=== PATIENT | male | born 1955 | race Caucasian/White ===

== ENCOUNTER 2018-04-22 07:10 | Observation (INO) | payer BC, OTHER ==
--- NOTE | 2018-04-09 13:52 | HP ---
HISTORY AND PHYSICAL: DATE OF SURGERY: 04/22/18 DATE OF OFFICE VISIT: 04/09/18 SURGEON: Jovanna Prince MD.* (DICTATED BY ANNETTA HANSON) PROCEDURE: Left total knee arthroscopy. CHIEF COMPLAINT: Left knee pain. HISTORY OF PRESENT ILLNESS: Mr. Jones is a 63-year-old gentleman with continued complaints of left knee pain secondary to endstage osteoarthritis. He has failed conservative management and elected to proceed with a left total knee arthroplasty, which is scheduled for 04/22/[address] Prince. PAST MEDICAL HISTORY: Hypertension and hypothyroidism. PAST SURGICAL HISTORY: Left knee arthroscopy, hernia repair and sinus surgery. CURRENT MEDICATIONS: 1. Lisinopril 10 mg daily. 2. Montelukast sodium 10 mg daily. 3. Synthroid 50 mcg daily. 4. Fish oil. 5. Saw palmetto. 6. Vitamin D. ALLERGIES: No known drug allergies. FAMILY HISTORY: Ovarian and prostate cancer. SOCIAL HISTORY: He is a 63-year-old gentleman lives with his . He smokes 1 to 2 cigarettes a day. He denies use of drugs, uses occasional alcohol. REVIEW OF SYSTEMS: A complete 14 point review of systems is reviewed with the patient, is positive for hypothyroidism. He denies history of DVT, PE, hepatitis, HIV or anesthesia problems. PHYSICAL EXAMINATION GENERAL: He is well developed, well nourished, in no acute distress. VITAL SIGNS: He stands 70 inches tall, weighs 311 pounds, his blood pressure is 122/70, his heart rate is 72. HEENT: Normocephalic, atraumatic. NECK: Supple. No palpable lymph nodes. PULMONARY: Lungs are clear to auscultation bilaterally. CARDIO: Regular rate and rhythm. Strong S1 and S2. ABDOMEN: Soft, nontender, nondistended. NEUROLOGICAL: He is alert and oriented x3. MUSCULOSKELETAL: Left lower extremity: Skin is intact. There are no open wounds or abrasions. There is a moderate joint effusion. Range of motion is 10 to 120 degrees of flexion with patellofemoral crepitus 5/5 lower extremity strength. 2+ dorsalis pedis pulses. Intact sensation. ASSESSMENT AND PLAN: Mr. Spann is a 63-year-old gentleman with end-stage osteoarthritis of the left knee. He has failed conservative treatment, elected to proceed with a left total knee arthroplasty, which is scheduled for 04/22/[address] Prince discussed the risks and the benefits of the surgery on today's visit, all of his questions were answered. He will follow up with Dr. Prince 2 weeks after the surgery. ANNETTA HANSON [id number]/[facility] #: [id number] SHAUNA
[~2018-04-22 07:10] MED LIST: Buffered Lidocaine 0.9% SYRIN* 5 ML/SYR SYRINGE INTRADERM ONE; ceFAZolin 1 GM VIAL(*) 3 GM in NS 0.9% 100 ML* 130 ML IVPB ONE
[2018-04-22] MEDS ORDERED: ceFAZolin 2 GM PREMIX (*) 2 GM/50 ML BAG IVPB ONE (07:22)
[2018-04-22] MEDS ORDERED: ceFAZolin 1 GM in Dextrose (*) 1 GM/50 ML BAG IVPB ONE (07:22)
[2018-04-22] MEDS ORDERED: Buffered Lidocaine 0.9% SYRIN* 5 ML/SYR SYRINGE ONE (07:22)
[2018-04-22] MEDS ORDERED: Propofol* 10 MG/ML 20 ML BTL IV PUSH ONE (07:39)
[2018-04-22] MEDS ORDERED: Lidocaine 2% PF * 5 ML VIAL ONE (07:39)
[2018-04-22] MEDS ORDERED: Succinylcholine* 20 MG/ML 10 ML VIAL ONE (07:39)
[2018-04-22] MEDS ORDERED: Rocuronium* 10 MG/ML VIAL ONE ×2 (07:39→10:26)
[2018-04-22] MEDS ORDERED: fentaNYL* 50 MCG/ML 2 ML VIAL (100 MCG VIAL) ONE (07:39)
[2018-04-22] MEDS ORDERED: Midazolam* 1 MG/ML 2 ML VIAL (2 MG) ONE (07:40)
[2018-04-22] MEDS ORDERED: EPINEPHrine SYR 0.1 MG/ML* (1:10,000) SYRINGE ONE (07:42)
[2018-04-22] MEDS ORDERED: Phenylephrine INJ* 10 MG/ML 1 ML VIAL (10 MG) ONE (07:42)
[2018-04-22] MEDS ORDERED: Sterile Water for Inj* 30 ML ONE (07:43)
[2018-04-22] MEDS ORDERED: Bupivacaine 0.5% W/EPI SDV* 10 ML VIAL INJ ONE (07:53)
[2018-04-22] MEDS ORDERED: ROPIVACAINE 5 MG/ML 30 ML BTL (0.5%) ONE (08:36)
[2018-04-22] MEDS ORDERED: EPHEDrine (Pressors)* 50 MG/ML VIAL ONE (08:37)
[2018-04-22] MEDS ORDERED: Lidocaine 2% PF* 10 ML AMP ONE (08:57)
[2018-04-22] MEDS ORDERED: Tranexamic Acid 1,000 MG/10 ML SDV IV ONE (09:21)
[2018-04-22] MEDS ORDERED: Dexamethasone IV* 4 MG/ML 1 ML (4 MG) ONE (10:06)
[2018-04-22] MEDS ORDERED: Bupivacaine 0.5% PF 10 ML VIAL INJ ONE (10:08)
[2018-04-22] MEDS ORDERED: HYDROmorphone INJ* 0.5 MG/0.5 ML SYRINGE ONE ×4 (10:42→13:43)
[2018-04-22] MEDS ORDERED: Labetalol IV* 5 MG/ML 20 ML VIAL ONE (10:52)
[2018-04-22] MEDS ORDERED: Ketorolac INJ* 30 MG/ML 1 ML VIAL ONE (10:53)
[2018-04-22] MEDS ORDERED: Ondansetron INJ* 2 MG/ML VIAL ONE (10:55)
[2018-04-22] MEDS ORDERED: Naloxone* 0.4 MG/ML 1 ML VIAL IV PRN (11:01)
[2018-04-22] MEDS ORDERED: Acetaminophen TAB* 325 MG PO PRN (11:01)
[2018-04-22] MEDS ORDERED: Glycopyrrolate IV* 0.2 MG/ML 1 ML VIAL ONE ×2 (11:51→15:40)
[2018-04-22] MEDS ORDERED: Neostigmine Methylsulfate* 1 MG/ML 10 ML VIAL (1 mg/ml) ONE ×2 (11:51→15:40)
[2018-04-22] MEDS: HYDROmorphone INJ* 0.5 MG/0.5 ML SYRINGE IV PRN ×4 (12:53→13:48)
[2018-04-22] MEDS ORDERED: Cyclobenzaprine TAB* 10 MG PO PRN (12:55)
[2018-04-22] MEDS ORDERED: Magnesium Hydroxide LIQ* 30 ML UDC PO PRN (12:55)
[2018-04-22] MEDS ORDERED: Ondansetron ODT TAB* 4 MG PO PRN (12:55)
[2018-04-22] MEDS ORDERED: traZODone TAB* 50 MG TAB PO PRN (12:55)
[2018-04-22] MEDS ORDERED: Morphine VIAL* 4 MG/ML VIAL (1 ml vial) IV PRN (12:55)
[2018-04-22] MEDS ORDERED: oxyCODONE/Acetamin 5/325 MG* TAB PO PRN (12:55)
[2018-04-22] MEDS ORDERED: diPHENhydraMINE IV* 50 MG/ML 1 ml VIAL (BENADRYL) IV PRN (12:55)
[2018-04-22] MEDS ORDERED: oxyCODONE/Acetamin 5/325 MG* TAB ONE (13:21)
[2018-04-22] MEDS: oxyCODONE/Acetamin 5/325 MG* TAB PO PRN (13:21)
--- NOTE | 2018-04-22 13:32 | RAD ---
HISTORY: POST OP COMPARISONS: February 19, 2018 VIEWS: 2, Frontal and lateral views of the left knee FINDINGS: BONE DENSITY: Normal. BONES: The patient is status post right knee arthroplasty. There is no hardware failure or osteolysis. JOINTS: The patient is status post right knee arthroplasty ALIGNMENT: There is no dislocation. SOFT TISSUES: There is postsurgical change to the soft tissues. OTHER FINDINGS: None. IMPRESSION: THE PATIENT IS STATUS POST RIGHT KNEE ARTHROPLASTY
[2018-04-22] MEDS ORDERED: Warfarin TAB(*) 6 MG PO ONE (17:00)
[2018-04-22] MEDS: ceFAZolin 1 GM in Dextrose (*) 1 GM/50 ML BAG IVPB SCH (17:46)
[2018-04-22] MEDS: oxyCODONE TAB* 5 MG TAB PO PRN ×2 (17:50→22:00)
[2018-04-22] MEDS: Ferrous Sulfate TAB* 325 MG PO SCH (22:00)
[2018-04-22] MEDS: Docusate CAP* 100 MG PO SCH (22:00)
[2018-04-22] MEDS: Magnesium Hydroxide LIQ* 30 ML UDC PO SCH (22:00)
[2018-04-22] MEDS: SAW PALMETTO FRUIT PO SCH (22:02)
[2018-04-23] MEDS: oxyCODONE TAB* 5 MG TAB PO PRN ×3 (02:26→12:55)
[2018-04-23] MEDS: ceFAZolin 1 GM in Dextrose (*) 1 GM/50 ML BAG IVPB SCH ×2 (02:28→09:25)
[2018-04-23] MEDS ORDERED: Levothyroxine TAB* 50 MCG TAB PO SCH (06:00)
[2018-04-23 06:37] LABS: Hematocrit 37 % (42-52); Hemoglobin 12.6 g/dl (14.0-18.0); Mean Platelet Volume 8.3 um3 (7.4-10.4); Platelet Count 202 10^3/ul (150-450)
[2018-04-23] MEDS ORDERED: Lisinopril TAB* 10 MG PO SCH (09:00)
[2018-04-23] MEDS ORDERED: Enoxaparin(*) 40 MG/0.4 ML SYR SUBCUT SCH (09:00)
[2018-04-23] MEDS ORDERED: Vitamin THERAPEUTIC TAB PO SCH (09:00)
[2018-04-23] MEDS ORDERED: Montelukast Sodium TAB* 10 MG PO SCH (09:00)
[2018-04-23] MEDS: Magnesium Hydroxide LIQ* 30 ML UDC PO SCH (09:20)
[2018-04-23] MEDS: oxyCODONE/Acetamin 5/325 MG* TAB PO PRN ×2 (09:21→14:28)
[2018-04-23] MEDS: Ferrous Sulfate TAB* 325 MG PO SCH (09:21)
[2018-04-23] MEDS: Docusate CAP* 100 MG PO SCH (09:21)
[2018-04-23] MEDS: SAW PALMETTO FRUIT PO SCH (09:25)
--- NOTE | 2018-04-23 11:29 | PN ---
Progress Note - Progress Note Date of Service: 04/23/18 SOAP: Subjective: []Patient seen at bedside. He is feeling well with no chest pain, nausea, dizziness or shortness of breath. Left knee pain is well controlled. Objective: []\ Vital Signs Temp 98.7 F 04/23/18 07:26 Pulse 62 04/23/18 07:26 Resp 18 04/23/18 09:21 BP 141/92 04/23/18 07:26 Pulse Ox 97 04/23/18 07:26 Intake & Output 04/22/18 04/23/18 04/23/18 18:59 06:59 18:59 Intake Total 2430 2118 1170 Output Total 675 2550 300 Balance 1755 -432 870 Weight 310 lb Intake: IV Fluids 1900 908 LR 1900 908 IVPB 50 110 ABX - CEFAZOLIN 55 Oral 480 1100 1170 Output: Urine 300 Strickland 625 2550 Residual 50 Strickland 16 Fr 50 Laboratory Last Values Hgb 12.6 g/dl (14.0-18.0) L 04/23/18 06:10 Hct 37 % (42-52) L 04/23/18 06:10 Plt Count 202 10^3/ul (150-450) 04/23/18 06:10 MPV 8.3 um3 (7.4-10.4) 04/23/18 06:10 Sodium 138 mmol/L (135-145) 04/23/18 06:10 Potassium 4.1 mmol/L (3.5-5.0) 04/23/18 06:10 Chloride 106 mmol/L (101-111) 04/23/18 06:10 Carbon Dioxide 27 mmol/L (22-32) 04/23/18 06:10 Anion Gap 5 mmol/L (2-11) 04/23/18 06:10 BUN 10 mg/dL (6-24) 04/23/18 06:10 Creatinine 0.80 mg/dL (0.67-1.17) 04/23/18 06:10 Est GFR ( Amer) 118.5 (>60) 04/23/18 06:10 Est GFR (Non-Af Amer) 98.0 (>60) 04/23/18 06:10 BUN/Creatinine Ratio 12.5 (8-20) 04/23/18 06:10 Glucose 135 mg/dL (70-100) H 04/23/18 06:10 Calcium 8.3 mg/dL (8.6-10.3) L 04/23/18 06:10 General: Well appearing, NAD LLE: Left knee dressing CDI and cryo unit in use. DF/PF intact. DP 2+. Sensation intact distally. Thigh soft. BL calves supple and nontender without erythema, edema or palpable cords. Assessment: []POD 1 sp left total knee arthroplasty Plan: []WBAT PT/OT INR ordered, will dose coumadin with results Lovenox bridge to coumadin
--- NOTE | 2018-04-23 11:36 | OP ---
DATE OF OPERATION: 04/22/18 - ROOM #348 DATE OF : 57 SURGEON: Jovanna Prince MD SUPERVISING AIRPLANE PILOT: ANNETTA Calderon. Ms. Sena did help throughout the procedure with preparation of the leg, wound retraction, manipulation of the knee, and wound closure. ANESTHESIOLOGIST: Dr. Murdock. ANESTHESIA: General. PRE-OP DIAGNOSIS: Severe end-stage degenerative osteoarthritis of the left knee joint. POST-OP DIAGNOSIS: Severe end-stage degenerative osteoarthritis of the left knee joint. OPERATIVE PROCEDURE: Left total knee arthroplasty. INDICATIONS: Mr. Spann is a 63-year-old gentleman with years of increasingly severe left knee pain. He failed conservative treatment with antiinflammatory pain medication, intraarticular injections, brace wear, and physical therapy. Radiographs showed [id number] arthritis. Due to continued pain and decreased quality of life, the patient elected to undergo left total knee arthroplasty. Informed consent was obtained from the patient. He understood the risks of surgery included, but were not limited to, bleeding, infection, damage to nearby structures, continued pain, need for further surgery , intraoperative fracture, nerve palsy, hardware failure or loosening, knee stiffness, loss of motion, stroke, heart attack, blood clot, and . He wished to proceed. COMPLICATIONS: None. TOURNIQUET TIME: 60 minutes. SPECIMENS: Bone and cartilage from the left knee joint sent to Pathology. HARDWARE USED: This is Alfaro and Nephew cemented total knee arthroplasty hardware. Two packages of simplex bone cement were used. For the femur, a left size 8 posterior stabilized Legion Oxinium femoral component. For the tibia, a size 7 left Minoo II tibial baseplate. For the insert, a 9-mm posterior stabilized articular insert size 7/8, and for the patella, a 35-mm 3 peg all poly patella. INTRAOPERATIVE FINDINGS: Intraoperatively, the patient was noted to have severe end-stage arthritis in all three compartments with full-thickness loss of cartilage. Preoperatively, he had a 20-degree flexion contracture. This corrected to full extension intraoperatively. DESCRIPTION OF PROCEDURE: Mr. Spann was identified in the preanesthesia unit. His left lower extremity was marked as the correct preoperative side. Informed consent was signed and placed in the chart. The patient was taken to the operating room and placed under general anesthesia. A Strickland catheter was placed. A tourniquet was placed on the left high. Left lower extremity was prepped and draped in the usual sterile fashion. Preop time-out was made to correctly identify the patient, side, and site. Appropriate perioperative antibiotics were given within 1 hour of incision. Tourniquet was inflated and a midline incision was made with a 10 blade. New 10 blade was used to make a standard medial parapatellar arthrotomy. Pelvis subluxed laterally. Electrocautery was used to subperiosteally elevate soft tissue off the superomedial tibia to the mid sagittal plane. Rongeur was used to remove any osteophytes. The knee was flexed up. The anterior horn of the lateral meniscus and the ACL were sharply released. A drill was used to enter the distal femur. Intramedullary distal femoral cutting guide was pinned on the distal femur. Oscillating saw was used to make the distal cut. Next, an external rotation guide was pinned on the distal femur. The distal femur was sized to a size 8. Size 8 multi-cutting jig was pinned on the distal femur. Oscillating saw was used to make the appropriate 4 chamfer cuts. The PCL was completely released. Tibia was subluxed anteriorly. Extramedullary tibial cutting guide was pinned on the proximal tibia. Oscillating saw was used to make the proximal tibial cut perpendicular to the mechanical axis of the tibia. The bone was carefully removed. The knee was brought out into full extension. Spacer block had excellent fit. The medial and lateral ligaments were well balanced. Flexion and extension gap was well balanced. The knee was flexed up. Lamina womens volleyball coach was placed both medially and laterally. Any remaining meniscus was carefully removed using electrocautery. Curved osteotome was used to remove any posterior osteophytes. Tibial tray and drop michael were placed and once again confirmed a satisfactory tibial cut. A left size 8 femoral trial was impacted onto the distal femur and had excellent fit. The box for the posterior stabilized implant was prepared using the reamer and box-cut osteotome. Size 7 tibial tray trial with a 9-mm insert trial was placed. The knee was taken through a range of motion. The knee had full extension to 130 degrees of flexion with satisfactory patellofemoral tracking. The patella was everted. 9 mm of patellar bone and cartilage were carefully removed using an oscillating saw. The patella was sized to size 35. Three peg holes were drilled through the size 35 guide. Trial 35 patella was placed and the knee was taken through a range of motion. There was satisfactory patellofemoral tracking. All trials were carefully removed. The tibia was subluxed anteriorly and sized to a size 7. Proximal tibia was prepared using a size 7 keel punch. All bony cut surfaces were copiously irrigated with sterile saline and dried. Final implants were cemented into place, starting with the tibia followed by the femur, and lastly the patella. A 9-mm insert trial was placed and the knee was brought out to full extension. The tourniquet was turned down at 60 minutes. The knee was copiously irrigated with sterile saline. Electrocautery was used to obtain meticulous hemostasis. Once the cement had fully cured, the insert trial was removed. Any excess cement was carefully removed around the implants and capsule. Final insert chosen was a 9- mm posterior stabilized articular insert, size 7/8. This was locked into position on the tibial tray without difficulty. Stability of the insert was checked and rechecked and noted to be stable. The knee was once again copiously irrigated with sterile saline. The extensor mechanism was closed using interrupted #1 Vicryls. The rest of the incision was closed in a layered fashion using 0 and 2-0 Vicryls. The skin was closed using running 3-0 nylon suture. Sterile Xeroform, 4x4s, and Webril were used to cover the incision. Reginald wrap and cold pack were placed over this. The patient's anesthesia was reversed without difficulty. He was taken to the PACU in stable condition. Intended weight-bearing will be weightbearing as tolerated. Intended DVT prophylaxis will be Coumadin with a Lovenox bridge. [id number]/[facility] #: [id number] [facility]IT[facility]as
[2018-04-23 12:48] LABS: INR 0.99 (0.77-1.02)
[2018-04-23 15:34] VITALS: BP 153/86
[2018-04-23] MEDS ORDERED: Warfarin TAB(*) 10 MG PO ONE (17:00)
[2018-04-23] MEDS ORDERED: Warfarin TAB(*) 4 MG PO ONE (17:00)
--- NOTE | 2018-04-24 09:16 | DS ---
AMENDED REPORT NOW INCLUDES DATE OF DISCHARGE AND COSIGNER DESIGNATION E-SIGNED BEFORE ADJUSTMENTS DISCHARGE SUMMARY: DATE OF ADMISSION: 04/22/18. DATE OF DISCHARGE: 04/23/18 SURGEON: Dr. Jovanna Prince.* (DICTATED BY ANNETTA PATEL) AIR SUPPORT OPERATIONS OPERATOR: ANNETTA Calderon. PRE-OP DIAGNOSIS: Severe end-stage degenerative osteoarthritis of the left knee joint. OPERATIVE PROCEDURE: Left total knee arthroplasty. INDICATIONS: Mr. Spann is a 63-year-old gentleman with years of increasingly severe left knee pain. He failed conservative management and elected to undergo a left total knee arthroplasty. HOSPITAL COURSE: The patient was admitted to [facility] on . He underwent a left total knee arthroplasty without complications. He recovered briefly in the PACU and then was transferred to the short-stay surgical unit. On postop day #1, he was well-appearing, in no acute distress. His incision was clean, dry, and intact with well-approximated wound edges and no surrounding erythema. Calves were soft and supple without erythema, edema or palpable cords. Left lower extremity dorsiflexion and plantar flexion intact. Dorsalis pedis pulse 2+. Capillary refill less than 2 seconds distally. LABORATORY STUDIES: Hemoglobin 12.6, hematocrit 37, INR 0.99. PHYSICAL EXAMINATION: Vital Signs: Temperature 98.1 orally, pulse 56, respiratory rate 17, oxygen saturation 99, and blood pressure 144/85. DISPOSITION: The patient was deemed to be medically and orthopedically stable for discharge home. DISCHARGE MEDICATIONS: Medications to resume at home include: 1. Singulair 10 mg p.o. q.a.m. 2. Lisinopril 10 mg p.o. q.a.m. 3. Saw palmetto 1 tab p.o. b.i.d. 4. Vitamin D3 5000 mg p.o. q.a.m. 5. Levothyroxine 150 mcg p.o. q.a.m. 6. Vitamin E one tab daily New medications: 1. Docusate 100 mg p.o. b.i.d. 2. Percocet 5/325 one to two tabs every 4 to 6 hours p.r.n., max daily dose of 10. 3. Warfarin 2 mg tabs one, 2-3 times daily depending on INR. DISCHARGE PLAN: Weightbearing as tolerated. Continue physical therapy. Coumadin, last INR 0.99 on 04/23/18, dosing 04/23/18 of 10 mg. Recheck INR on 04/24/18. Pain control with Percocet 5/325 one to two tabs every 4 to 6 hours for pain, max of 10 tabs per day. Follow up with Dr. Prince in 10 to 14 days. ANNETTA PATEL [id number]/[facility] #: [id number] [facility]
== END 2018-04-23 18:15 | disposition home or self-care (01) ==
LOC: OR 07:10 → SSU 14:50
PROVIDERS: ADMIT Orthopaedic Surgery Adult Reconstructive Orthopaedic Surgery; ATTEND Orthopaedic Surgery Adult Reconstructive Orthopaedic Surgery
PROC: 0SRD0J9 Replacement of Left Knee Joint with Synthetic Substitute, Cemented, Open Approach (ICD-10-PCS; principal; 2018-04-22 09:00)
DX: M17.12 Unilateral primary osteoarthritis, left knee (principal); I10 Essential (primary) hypertension; E03.9 Hypothyroidism, unspecified; Z79.899 Other long term (current) drug therapy; Z79.01 Long term (current) use of anticoagulants; F17.210 Nicotine dependence, cigarettes, uncomplicated
CPT/HCPCS: 36415; 80048; 85014; 85018; 85049; 85610; A9270-GY; C1776; G0378; J0171; J0330; J0690; J1100; J1170; J1650; J1885; J2001; J2250; J2405; J2704; J2710; J2795; J3010

== ENCOUNTER 2019-01-22 08:53 | Inpatient (IN) | payer BC ==
--- NOTE | 2019-01-13 11:11 | HP ---
HISTORY AND PHYSICAL: DATE OF ADMISSION/SURGERY: 01/22/19 DATE OF OFFICE VISIT: 01/12/19 SURGEON: Jovanna Prince MD* (dictated by ANNETTA Hanson). PROCEDURE: Right total knee arthroplasty. CHIEF COMPLAINT: Right knee pain. HISTORY OF PRESENT ILLNESS: Mr. Spann is a 63-year-old gentleman with end- stage osteoarthritis of the right knee. He has failed conservative treatment and elected to proceed with a right total knee arthroplasty. PAST MEDICAL HISTORY: Hypertension, hypothyroidism. PAST SURGICAL HISTORY: Left total knee arthroplasty, hernia repair, and sinus surgery. CURRENT MEDICATIONS: 1. Tylenol with Codeine as needed. 2. Carisoprodol 350 mg q.h.s. as needed. 3. Lisinopril 20 mg a day. 4. Montelukast sodium 10 mg a day. 5. Synthroid 50 mcg a day. 6. Saw palmetto. 7. Fish oil. 8. Vitamin D. ALLERGIES: No known drug allergies. FAMILY HISTORY: Cancer. SOCIAL HISTORY: This 63-year-old gentleman lives with his . He does not smoke or use drugs. He uses occasional alcohol. REVIEW OF SYSTEMS: A complete 14-point review of systems was reviewed with the patient, it was positive for hypothyroidism. He denies a history of DVT, PE, hepatitis, HIV, or anesthesia problems. PHYSICAL EXAMINATION GENERAL: He is well developed, well nourished, in no acute distress. VITAL SIGNS: He stands 72 inches tall, weighs 293 pounds. His blood pressure is 140/86, his heart rate is 56. HEENT: Normocephalic, atraumatic. NECK: Supple. No palpable lymph nodes. PULMONARY: Lungs are clear to auscultation bilaterally. CARDIO: Regular rate and rhythm. Strong S1, S2. ABDOMEN: Soft, nontender, nondistended. NEUROLOGICAL: He is alert and oriented x3. MUSCULOSKELETAL: Right lower extremity: The skin is intact. There are no open wounds or abrasions. There is moderate effusion of the right knee. He has some tenderness over the medial and lateral joint lines. Range of motion is 10 to 110 degrees of flexion with patellofemoral crepitus. He has a 2+ dorsalis pedis pulse, intact sensation, and his lower extremity muscle group strengths are intact at 5/5. ASSESSMENT AND PLAN: Mr. Spann is a 63-year-old gentleman with end-stage osteoarthritis of the right knee. He has failed conservative treatment and elected to proceed with a right total knee arthroplasty. The surgery is scheduled for 01/22/[address] Prince discussed the risks and benefits of the surgery at today's visit and all of his questions were answered. He will follow up with Dr. Prince in 2 weeks after the surgery. ANNETTA HANSON [id number]/[facility] #: [id number] MTDKostas
[~2019-01-22 08:53] MED LIST changes: -Buffered Lidocaine 0.9% SYRIN* 5 ML/SYR SYRINGE INTRADERM ONE; +Buffered Lidocaine 1% SYRIN* 1 ML/SYRINGE INTRADERM ONE; +Tranexamic Acid 1,000 MG in NS 0.9% 50 ML* (outpatient use) IV SCH; -ceFAZolin 1 GM VIAL(*) 3 GM in NS 0.9% 100 ML* 130 ML IVPB ONE
[2019-01-22] MEDS ORDERED: ceFAZolin 1 GM in Dextrose (*) 1 GM/50 ML BAG IVPB ONE (09:17)
[2019-01-22] MEDS ORDERED: Buffered Lidocaine 1% SYRIN* 1 ML/SYRINGE INTRADERM ONE (09:17)
[2019-01-22] MEDS ORDERED: ceFAZolin 2 GM in NS PREMIX(*) 2 GM/100 ML BAG IVPB ONE (09:17)
[2019-01-22] MEDS: Lactated Ringers 1000 ML Bag* 1,000 ML IV SCH ×3 (09:28→15:39)
[2019-01-22] MEDS ORDERED: Bupivacaine 0.25% SDV* 30 ML ONE (10:22)
[2019-01-22] MEDS ORDERED: Midazolam* 1 MG/ML 5 ML VIAL (5 MG) ONE ×2 (10:26→11:08)
[2019-01-22] MEDS ORDERED: ROPIVACAINE 5 MG/ML 30 ML BTL (0.5%) ONE (10:35)
[2019-01-22] MEDS ORDERED: fentaNYL* 50 MCG/ML 2 ML VIAL (100 MCG VIAL) ONE ×2 (10:56→13:48)
[2019-01-22] MEDS ORDERED: Bupivacaine 0.5% SDV PF* 30ML VIAL ONE (10:57)
[2019-01-22] MEDS ORDERED: DiMENhydriNATE IV* 50 MG/ML VIAL IV PUSH PRN (11:37)
[2019-01-22] MEDS ORDERED: Naloxone* 0.4 MG/ML 1 ML VIAL IV PRN (11:37)
[2019-01-22] MEDS ORDERED: Scopolamine 1.5 mg* PATCH TRANSDERM PRN (11:37)
[2019-01-22] MEDS ORDERED: diPHENhydraMINE IV* 50 MG/ML 1 ml VIAL (BENADRYL) IV PRN ×2 (11:37→13:20)
[2019-01-22] MEDS ORDERED: Ondansetron INJ* 2 MG/ML VIAL IV PRN ×2 (11:37→13:20)
[2019-01-22] MEDS ORDERED: oxyCODONE/Acetamin 5/325 MG* TAB PO PRN ×2 (11:37→13:20)
[2019-01-22] MEDS ORDERED: Ketorolac INJ* 30 MG/ML 1 ML VIAL ONE (12:30)
[2019-01-22] MEDS ORDERED: Ondansetron INJ* 2 MG/ML VIAL ONE (12:30)
[2019-01-22] MEDS ORDERED: Polyethylene Glycol 3350* 17 GM PACKET PO PRN (13:20)
[2019-01-22] MEDS ORDERED: Magnesium Hydroxide LIQ* 30 ML UDC PO PRN (13:20)
[2019-01-22] MEDS ORDERED: Bisacodyl SUPP* 10 MG SUPP PR PRN (13:20)
[2019-01-22] MEDS ORDERED: Ondansetron TAB* 4 MG PO PRN (13:20)
[2019-01-22] MEDS ORDERED: traMADol TAB* 50 MG ONE (13:48)
[2019-01-22] MEDS ORDERED: HYDROmorphone INJ1* 1 MG/ML SYRINGE ONE (13:48)
[2019-01-22] MEDS: traMADol TAB* 50 MG PO PRN (13:50)
[2019-01-22] MEDS: fentaNYL* 50 MCG/ML 2 ML VIAL (100 MCG VIAL) IV PRN ×4 (13:51→14:32)
[2019-01-22] MEDS: HYDROmorphone INJ1* 1 MG/ML SYRINGE IV PRN ×5 (14:00→14:40)
[2019-01-22] MEDS: Cyclobenzaprine TAB* 10 MG PO PRN (16:06)
[2019-01-22] MEDS: oxyCODONE/Acetamin 5/325 MG* TAB PO PRN ×2 (16:06→21:22)
[2019-01-22] MEDS: Acetaminophen TAB* 325 MG PO SCH ×2 (16:17→23:28)
--- NOTE | 2019-01-22 16:43 | OP ---
Operative Report - Blank - Operative Report Date of Operation: 01/22/19 Note: ANGELINA ADDISON 1955 Date of Surgery: 01/22/19 Jovanna Prince MD Media Operator: Olya LITTLEJOHN did help throughout the procedure with preparation of the knee, wound retraction, manipulation of the knee, and wound closure. Anesthesiologist: Karma Kerr Md Anesthesia Type: Spinal Preoperative Diagnosis: Right severe degenerative osteoarthritis of the knee Postoperative Diagnosis: As above Procedure Performed: Right Total Knee Arthroplasty Tourniquet time: 53 minutes Complications: None Specimen: Bone and cartilage from the right knee joint sent to pathology. Hardware Used: Cemented Alfaro and Nephew total knee hardware was used - For the femur a size 8 right oxinium legion posterior stabilized femoral component, for the tibia a size 7 gagandeep II tibial baseplate, for the insert a size 9mm 7-8 posterior stabilized articular polyethylene insert, and for the patella a size 35 3-peg all poly patella. Brief History/Indication: ANGELINA ADDISON was known in clinic and had a history of severe side knee pain and swelling. He failed conservative treatment with anti-inflammatories, pain pills, intra-articular injections and physical therapy. He elected to undergo right total knee arthroplasty due to continued pain and decreased quality of life. Radiographs showed severe end stage osteoarthritis of the knee with bone on bone contact. Informed consent was obtained from the patient. He understood the risks of surgery included but were not limited to: bleeding, infection, damage to nearby structures, intraoperative fracture, nerve palsy, failure of the hardware, early loosening, knee stiffness or loss of motion, anesthesia complications, stroke, heart attack , blood clot and . He wished to proceed. Intra-Operative Findings: Intraoperatively the patient was noted to have severe loss of cartilage in all 3 compartments of the knee. Description of the Procedure: ANGELINA ADDISON was identified in the preanesthesia unit. His right knee was marked as the correct operative side. Informed consent was signed and placed in the chart. The patient was taken to the operating room and placed under anesthesia without complication. A holder catheter was placed. A tourniquet was placed on the right thigh. The right lower extremity was prepped and draped in the usual sterile fashion. Preoperative time-out was made to correctly identify the patient, side and site. Appropriate intraoperative antibiotics were given within one hour of incision. Tourniquet was inflated. A midline incision was made and carried sharply down to the extensor mechanism. A new 10 blade was used to make a standard medial parapatellar arthrotomy. The patella was subluxed laterally. Electrocautery was used to dissect soft tissue off the superomedial tibia to the midsagittal plane. The knee was flexed up. The anterior horn of the lateral meniscus and the ACL were sharply incised. A drill was used to enter the distal femur. The intramedullary distal femoral cutting guide was pinned on the distal femur. The oscillating saw was used to make the distal femoral cut. The external rotation guide was pinned on the distal femur and the distal femur was sized to a size 8. The size 8 multi-cutting jig was pinned on the distal femur. The oscillating saw was used to make the appropriate 4 chamfer cuts. Next the PCL was completely released. The extramedullary tibial cutting guide was pinned on the proximal tibia and the oscillating saw was used to make the proximal tibial cut perpendicular to the mechanical axis of the tibia. The bone was carefully removed. The knee was brought out into full extension. The spacer block was placed and had excellent fit with the knee in full extension. The medial and lateral ligaments were well balanced. The flexion and extension gaps were well balanced. The knee was flexed up. Lamina drapery head former was placed both medially and laterally. Any remaining meniscus was removed with electrocautery. Curved osteotome was used to remove any posterior osteophytes. The tibial tray and drop michael were placed and confirmed a satisfactory tibial cut. The size 8 right femoral trial was impacted onto the distal femur. This trial had excellent fit and stability. The box for the posterior stabilized implant was prepared using a box cut osteotome and a reamer. Next a tibial tray trial and 9 mm insert trial was placed. The knee was taken through a range of motion and had full extension to 130 degrees of flexion. Patellofemoral tracking was satisfactory. The patella was inverted and sized to a size 35. Three peg holes were drilled through the size 35 drill guide. The trial patella was placed and the knee was taken through a range of motion. There was satisfactory patellofemoral tracking. All trials were removed. The tibia was subluxed anteriorly and sized to a size 7. The proximal tibial was prepared with a size 7 keel punch. All bony cut surfaces were irrigated with sterile saline and dried. Final implants were cemented into place starting with the tibia, followed by the femur, and last the patella. A 9 mm insert trial was placed and the knee was brought into full extension. Tourniquet was turned down and the knee was copiously irrigated with sterile saline. Electrocautery was used to obtain meticulous hemostasis. Once the cement had fully cured, the insert trial was removed. Any excess cement was removed from around the hardware and capsule. Final insert chosen was a 9 mm posterior stabilized Gagandeep II articular insert size 7-8. Stability of the insert was checked and noted to be stable. The extensor mechanism was closed using number 1 vicryls. The rest of the incision was closed in a layered fashion using 0 and 2-0 vicryls. The skin was closed using 3-0 nylon suture. Sterile xeroform, 4x4s and webril were used to cover the incision. Reginald wrap and cold pack were used to cover the dressings. The patients anesthesia was reversed without difficulty. He was taken to the PACU in stable condition. Intended weight-bearing will be as tolerated.
--- NOTE | 2019-01-22 17:08 | PN ---
Progress Note - Progress Note Date of Service: 01/22/19 Note: OOB standing with walker, minimal pain; able to dorsi flex/plantar flex, 2+ DP pulse, dressing c/d/i
[2019-01-22] MEDS: oxyCODONE TAB* 5 MG TAB PO PRN ×2 (18:02→22:54)
[2019-01-22] MEDS: ceFAZolin 1 GM ADVAN(*) 1 GM in NS 0.9% 50 ML* 50 ML IVPB SCH (18:29)
--- NOTE | 2019-01-22 19:52 | CONS ---
CONSULTATION REPORT: DATE OF CONSULT: 01/22/19 REQUESTING PHYSICIAN: Jovanna Prince MD. REASON FOR CONSULT: Co-management of chronic medical conditions. HISTORY OF PRESENT ILLNESS: Robert Spann is a 63-year-old male with past medical history of hypertension, hypothyroidism, and allergic rhinitis , who is status post right total knee arthroplasty with Dr. Prince, postop day 0. He failed outpatient conservative treatment of his right knee osteoarthritis and elected to have surgery today. Dr. Prince consulted Hospital Medicine for co-management of chronic medical conditions. At time of evaluation, the patient is on the short-stay floor and is feeling comfortable. He only complains of right knee pain, but states that it is appropriately controlled. He denies abdominal pain, nausea, vomiting, chest pain, shortness of breath, headache, dizziness, visual changes, palpitations. He has no questions. PAST MEDICAL HISTORY: 1. Hypertension. 2. Hypothyroidism. 3. Allergic rhinitis. 4. Osteoarthritis. PAST SURGICAL HISTORY: Left TKA, hernia repair, and sinus surgery. HOME MEDICATIONS: 1. Tylenol with Codeine p.r.n. pain. 2. Carisoprodol 350 mg daily p.r.n. pain. 3. Lisinopril 20 mg a day p.o. 4. Singulair 10 mg p.o. daily. 5. Synthroid 50 mcg p.o. daily. 6. Saw palmetto. 7. Fish oil. 8. Vitamin D. ALLERGIES: No known drug allergies. FAMILY HISTORY: Cancer reported. SOCIAL HISTORY: He lives with his . He previously smoked 2 to 3 cigarettes per week for approximately 20 years and quit smoking last month. He denies drug use. He drinks alcohol about 3 beverages per week, maybe less. REVIEW OF SYSTEMS: An 11-point review of systems was completed and all pertinent positives and negatives are as above in the HPI. All other systems are negative. PHYSICAL EXAM: General: Obese, male, lying upright in the hospital bed , appearing comfortable, in no acute distress. His is at bedside. Head: Normocephalic, atraumatic. Eyes: PERRL. EOMI. Sclerae anicteric. ENT: Mucous membranes moist. Neck: Supple without JVP. Cardio: Regular rate and rhythm without murmurs, rubs, or gallops. Respiratory: Lungs are clear to auscultation. Chest expansion symmetrical with respirations. Abdomen: Abdomen is soft, nontender, nondistended. No masses or hepatosplenomegaly. Extremities : There is no edema or clubbing in all extremities. Neuro: The patient is alert and oriented x3. Cranial nerves II through XII are grossly intact. No tremor is noted. Skin is warm, dry, and intact. Psych: The patient is pleasant and cooperative. DIAGNOSTIC STUDIES/LAB DATA: None to report. ASSESSMENT AND PLAN: Robert Spann is a 63-year-old male with past medical history of hypothyroidism and hypertension, who is status post right TKA with Dr. Prince. Hospital Medicine has been consulted for co-management of his chronic medical conditions. 1. Hypertension: The patient has been normotensive since he arrived to the short- stay floor. He was overall normotensive in the PACU as well. Ordering holding parameters for his home lisinopril, cannot be administered if his systolic blood pressure is less than 120. 2. Hypothyroidism: Continue home Synthroid. 3. Allergic rhinitis: Continue home Singulair. The patient denies history of asthma. 4. Status post right TKA: Management per Orthopedic Surgery. 5. DVT prophylaxis: Management per Orthopedic Surgery. 6. Disposition: Per Orthopedic Surgery. Thank you for allowing us to participate in the care of this patient. We will follow during this admission. ANNETTA SAVAGE [id number]/CPS #: [id number] [facility]
[2019-01-22] MEDS: Docusate CAP* 100 MG PO SCH (21:22)
[2019-01-22] MEDS: Magnesium Hydroxide LIQ* 30 ML UDC PO SCH (21:22)
[2019-01-23] MEDS: Lactated Ringers 1000 ML Bag* 1,000 ML IV SCH (01:59)
[2019-01-23] MEDS: Morphine 4 MG/ML VIAL (1 ml) 4 MG/ML VIAL IV PRN ×2 (02:07→22:23)
[2019-01-23] MEDS: ceFAZolin 1 GM ADVAN(*) 1 GM in NS 0.9% 50 ML* 50 ML IVPB SCH ×2 (03:33→10:38)
[2019-01-23] MEDS: Levothyroxine TAB* 50 MCG TAB PO SCH (06:12)
[2019-01-23] MEDS: traMADol TAB* 50 MG PO PRN (06:12)
[2019-01-23 07:58] LABS: Hematocrit 38 % (36-46); Hemoglobin 12.4 g/dL (14.0-18.0); Mean Platelet Volume 8.4 fL (7.4-10.4); Platelet Count 220 10^3/uL (150-450)
[2019-01-23] MEDS: Docusate CAP* 100 MG PO SCH ×2 (08:02→22:28)
[2019-01-23] MEDS: Apixaban* 2.5 MG TAB PO SCH ×2 (08:02→22:28)
[2019-01-23] MEDS: oxyCODONE/Acetamin 5/325 MG* TAB PO PRN ×4 (08:02→22:27)
[2019-01-23] MEDS: Montelukast Sodium TAB* 5 MG PO SCH (08:02)
[2019-01-23] MEDS: Lisinopril TAB* 10 MG PO SCH (08:02)
[2019-01-23] MEDS: Magnesium Hydroxide LIQ* 30 ML UDC PO SCH ×2 (08:03→22:28)
[2019-01-23] MEDS: Acetaminophen TAB* 325 MG PO SCH ×2 (08:06→17:25)
[2019-01-23 08:15] LABS: Calcium 8.7 mg/dL (8.6-10.3); EGFR African American 156.1 (>60); Potassium 3.9 mmol/L (3.5-5.0)
[2019-01-23] MEDS ORDERED: Lisinopril TAB* 10 MG PO SCH (09:00)
[2019-01-23] MEDS: Cyclobenzaprine TAB* 10 MG PO PRN ×2 (10:37→22:43)
--- NOTE | 2019-01-23 12:06 | PN ---
Progress Note - Progress Note Date of Service: 01/23/19 SOAP: Subjective: []Patient seen OOB in chair, he feels fairly well but mentions calf pain on the right with palpation. Denies SOB, CP or dizziness. Objective: [] Vital Signs Temp 98.1 F 01/23/19 11:01 Pulse 64 01/23/19 11:01 Resp 18 01/23/19 11:01 BP 133/83 01/23/19 11:01 Pulse Ox 98 01/23/19 11:01 Intake & Output 01/22/19 01/23/19 01/23/19 18:59 06:59 18:59 Intake Total 1100 1955 620 Output Total 850 1975 250 Balance 250 -20 370 Weight 284 lb 12.8 oz Intake: IV Fluids 200 980 CEFAZOLIN 3G 150 LR 980 TRANSEXAMIC ACID 1G 50 IVPB 55 ABX - CEFAZOLIN 55 Oral 900 920 620 Output: Urine 1125 250 Strickland 850 850 Laboratory Results - last 24 hr 01/23/19 01/23/19 07:50 07:50 Hgb 12.4 L Hct 38 Plt Count 220 MPV 8.4 Sodium 137 Potassium 3.9 Chloride 105 Carbon Dioxide 28 Anion Gap 4 BUN 12 Creatinine 0.63 L Est GFR ( Amer) 156.1 Est GFR (Non-Af Amer) 129.0 BUN/Creatinine Ratio 19.0 Glucose 133 H Calcium 8.7 Right knee dressing is dry and intact + Df right ankle without calf pain mild tenderness calf sensation and circulation intact distally RLE Assessment: []s/p RTK POD #1 Plan: []Venous doppler to r/o DVT PT/OT WBAT Eliquis for DVT prophylaxis Probable discharge home 01/24 with [facility]
[2019-01-23] MEDS ORDERED: Morphine TAB Extended Release (*) 30 MG TAB.ER PO SCH (14:00)
[2019-01-23] MEDS ORDERED: Artificial Tears* 15 ML BTL BOTH EYES PRN (14:10)
[2019-01-23] MEDS: Morphine TAB Extended Release (*) 15 MG TAB.ER PO SCH (15:00)
--- NOTE | 2019-01-23 19:28 | PN ---
Subjective Date of Service: 01/23/19 Interval History: Patient reported calf pain to orthopedic team today. Doppler of lower extremity ruled out DVT. At time of evaluation patient does mention continued calf pain. He otherwise feels well. He denies chest pain, difficulty breathing, headache, visual changes , and dizziness. Objective Active Medications: Acetaminophen (Tylenol Tab*) 975 mg PO Q8H [facility] Last Admin: 01/23/19 17:25 Dose: Not Given Apixaban (Eliquis*) 2.5 mg PO BID [facility] Last Admin: 01/23/19 08:02 Dose: 2.5 mg Bisacodyl (Dulcolax Supp*) 10 mg ND DAILY PRN PRN Reason: constipation Cyclobenzaprine HCl (Flexeril Tab*) 10 mg PO TID PRN PRN Reason: SPASMS Last Admin: 01/23/19 10:37 Dose: 10 mg Diphenhydramine HCl (Benadryl Iv*) 12.5 mg IV Q6H PRN PRN Reason: PRURITIS Docusate Sodium (Colace Cap*) 100 mg PO BID [facility] Last Admin: 01/23/19 08:02 Dose: 100 mg Lactated Ringer's (Lactated Ringers 1000 Ml Bag*) 1,000 mls @ 100 mls/hr IV PER RATE [facility] Last Admin: 01/23/19 01:59 Dose: 100 mls/hr Lactulose (Lactulose*) 30 ml PO Q6H PRN PRN Reason: constipation Levothyroxine Sodium (Synthroid Tab*) 50 mcg PO QAM@0600 [facility] Last Admin: 01/23/19 06:12 Dose: 50 mcg Lisinopril (Prinivil Tab*) 10 mg PO QAM [facility] Last Admin: 01/23/19 08:02 Dose: 10 mg Magnesium Hydroxide (Milk Of Magnesia Liq*) 30 ml PO BID [facility] Last Admin: 01/23/19 08:03 Dose: 30 ml Magnesium Hydroxide (Milk Of Magnesia Liq*) 30 ml PO Q6H PRN PRN Reason: constipation Montelukast Sodium (Singulair Tab*) 10 mg PO QAM [facility] Last Admin: 01/23/19 08:02 Dose: 10 mg Morphine Sulfate (Morphine 4 Mg/Ml Vial (1 Ml)) 2 mg IV Q2H PRN PRN Reason: PAIN Last Admin: 01/23/19 02:07 Dose: 2 mg Morphine Sulfate (Ms Contin(*)) 15 mg PO Q12H [facility] Last Admin: 01/23/19 15:00 Dose: 15 mg Ondansetron HCl (Zofran Inj*) 4 mg IV Q6H PRN PRN Reason: nausea Ondansetron HCl (Zofran Tab*) 4 mg PO Q6H PRN PRN Reason: NAUSEA Oxycodone HCl (Roxycodone Tab*) 10 mg PO Q4H PRN PRN Reason: SEVERE PAIN Last Admin: 01/22/19 22:54 Dose: 10 mg Oxycodone/Acetaminophen (Percocet 5/325 Tab*) 1 tab PO Q4H PRN PRN Reason: PAIN Oxycodone/Acetaminophen (Percocet 5/325 Tab*) 2 tab PO Q4H PRN PRN Reason: PAIN Last Admin: 01/23/19 17:28 Dose: 2 tab Polyethylene Glycol/Electrolytes (Miralax*) 17 gm PO DAILY PRN PRN Reason: Constipation Polyvinyl Alcohol (Polyvinyl Alcohol 1.4% Opth*) 1 drop BOTH EYES Q2H PRN PRN Reason: DRY EYE Tramadol HCl (Ultram*) 50 mg PO Q6H PRN PRN Reason: PAIN Last Admin: 01/23/19 06:12 Dose: 50 mg Vital Signs - 8 hr 01/23/19 01/23/19 01/23/19 13:09 15:00 16:00 Temperature Pulse Rate Respiratory 16 16 Rate Blood Pressure (mmHg) O2 Sat by Pulse 96 Oximetry 01/23/19 01/23/19 16:12 17:28 Temperature 97.8 F Pulse Rate 65 Respiratory 18 16 Rate Blood Pressure 147/90 (mmHg) O2 Sat by Pulse 96 Oximetry Oxygen Devices in Use Now: None Appearance: Obese male, sitting upright on edge of hospital bed, appearing in NAD Eyes: No Scleral Icterus, PERRLA Ears/Nose/Mouth/Throat: Mucous Membranes Moist Neck: NL Appearance and Movements; NL JVP Respiratory: Symmetrical Chest Expansion and Respiratory Effort, Clear to Auscultation Cardiovascular: NL Sounds; No Murmurs; No JVD, RRR Abdominal: - - abdomen soft, nontender, nondistended Extremities: No Edema, No Clubbing, Cyanosis, - - right knee in tootie wrap; no palpable cord Skin: No Rash or Ulcers, - - skin is warm, dry, intact Neurological: Alert and Oriented x 3, - - no focal deficit Result Diagrams: 01/23/19 07:50 01/23/19 07:50 Assess/Plan/Problems-Billing Assessment: 63 yo male with PMHx HTN and hypothyroidism s/p right TKA with Dr. Prince. Hospital medicine has been consulted for co-management of chronic medical conditions. - Patient Problems (1) Calf pain Code(s): M79.669 - PAIN IN UNSPECIFIED LOWER LEG SNOMED Code(s): 672426773 Comment: -DVT ruled out with doppler (2) Hypertension Code(s): I10 - ESSENTIAL (PRIMARY) HYPERTENSION SNOMED Code(s): 79253836 Comment: -continue home lisinopril with hold parameters for SBP<120 -patient has been overall normotensive (3) Hypothyroidism Code(s): E03.9 - HYPOTHYROIDISM, UNSPECIFIED SNOMED Code(s): 27595588 Comment: -continue home synthroid (4) DVT prophylaxis Code(s): DFT4095 - SNOMED Code(s): 653848650 Comment: -per orthopedic surg Status and Disposition: Dispo per orthopedic surg
[2019-01-24] MEDS: Acetaminophen TAB* 325 MG PO SCH ×3 (00:22→14:43)
[2019-01-24] MEDS: oxyCODONE TAB* 5 MG TAB PO PRN ×3 (01:07→12:52)
[2019-01-24] MEDS: Morphine TAB Extended Release (*) 15 MG TAB.ER PO SCH ×2 (02:58→14:33)
[2019-01-24] MEDS: oxyCODONE/Acetamin 5/325 MG* TAB PO PRN ×3 (04:24→15:31)
[2019-01-24] MEDS: Levothyroxine TAB* 50 MCG TAB PO SCH (06:22)
[2019-01-24 06:24] LABS: Hematocrit 36 % (36-46); Hemoglobin 11.7 g/dL (14.0-18.0); Mean Platelet Volume 8.6 fL (7.4-10.4); Platelet Count 201 10^3/uL (150-450)
[2019-01-24] MEDS: Docusate CAP* 100 MG PO SCH (08:56)
[2019-01-24] MEDS: Apixaban* 2.5 MG TAB PO SCH (08:56)
[2019-01-24] MEDS: Montelukast Sodium TAB* 5 MG PO SCH (08:57)
[2019-01-24] MEDS: Lisinopril TAB* 10 MG PO SCH (08:57)
[2019-01-24] MEDS: Magnesium Hydroxide LIQ* 30 ML UDC PO SCH (09:09)
--- NOTE | 2019-01-24 09:14 | PN ---
Progress Note - Progress Note Date of Service: 01/24/19 SOAP: Subjective: Pt is doing well. Pain controlled. PT going well. Denies F/C, CP/SOB, calf pain Objective: PE- 63 y/o WDWN F NAD, A&Ox3 RLE- dressing changed, inc c/d/i, calf soft NT, +DF/PF, +2 DP pulse, SILT distally Vital Signs Temp Pulse Resp BP Pulse Ox 98.4 F 81 18 140/95 92 01/24/19 07:48 01/24/19 07:48 01/24/19 08:57 01/24/19 07:48 01/24/19 07:48 Laboratory Results - last 24 hr 01/24/19 05:24 Hgb 11.7 L Hct 36 Plt Count 201 MPV 8.6 Assessment: []s/p RTK POD #2 Plan: []Venous doppler aldo for DVT, calf pain resolved PT/OT WBAT Eliquis for DVT prophylaxis Percocet, flexaril, MS contin for pain Discharge home today with [facility]
--- NOTE | 2019-01-24 09:46 | PN ---
Subjective Date of Service: 01/24/19 Interval History: HD # 3 on 01/24 Consult ID: 63 yo M PMH HTN, hypothyroid, OA, s/p L TKR on 01/22 Overnight no acute events, VSS, voiding freely tolerating PO Labs:Stable This morning very pleasant man sitting up in bed, offering no complaints, pain is minimal currently, though reports "worse overnight" no CP, SOB, HARRELL, N/V, no BM yet though feels the urge. Looking forward to working with PT Objective Active Medications: Acetaminophen (Tylenol Tab*) 975 mg PO Q8H [facility] Last Admin: 01/24/19 09:01 Dose: Not Given Apixaban (Eliquis*) 2.5 mg PO BID [facility] Last Admin: 01/24/19 08:56 Dose: 2.5 mg Bisacodyl (Dulcolax Supp*) 10 mg PA DAILY PRN PRN Reason: constipation Cyclobenzaprine HCl (Flexeril Tab*) 10 mg PO TID PRN PRN Reason: SPASMS Last Admin: 01/23/19 22:43 Dose: 10 mg Diphenhydramine HCl (Benadryl Iv*) 12.5 mg IV Q6H PRN PRN Reason: PRURITIS Docusate Sodium (Colace Cap*) 100 mg PO BID [facility] Last Admin: 01/24/19 08:56 Dose: 100 mg Lactated Ringer's (Lactated Ringers 1000 Ml Bag*) 1,000 mls @ 100 mls/hr IV PER RATE [facility] Last Admin: 01/23/19 01:59 Dose: 100 mls/hr Lactulose (Lactulose*) 30 ml PO Q6H PRN PRN Reason: constipation Levothyroxine Sodium (Synthroid Tab*) 50 mcg PO QAM@0600 [facility] Last Admin: 01/24/19 06:22 Dose: 50 mcg Lisinopril (Prinivil Tab*) 10 mg PO QAM [facility] Last Admin: 01/24/19 08:57 Dose: 10 mg Magnesium Hydroxide (Milk Of Magnesia Liq*) 30 ml PO BID [facility] Last Admin: 01/24/19 09:09 Dose: 30 ml Magnesium Hydroxide (Milk Of Magnesia Liq*) 30 ml PO Q6H PRN PRN Reason: constipation Montelukast Sodium (Singulair Tab*) 10 mg PO QAM [facility] Last Admin: 01/24/19 08:57 Dose: 10 mg Morphine Sulfate (Morphine 4 Mg/Ml Vial (1 Ml)) 2 mg IV Q2H PRN PRN Reason: PAIN Last Admin: 01/23/19 22:23 Dose: 2 mg Morphine Sulfate (Ms Contin(*)) 15 mg PO Q12H [facility] Last Admin: 01/24/19 02:58 Dose: 15 mg Ondansetron HCl (Zofran Inj*) 4 mg IV Q6H PRN PRN Reason: nausea Ondansetron HCl (Zofran Tab*) 4 mg PO Q6H PRN PRN Reason: NAUSEA Oxycodone HCl (Roxycodone Tab*) 10 mg PO Q4H PRN PRN Reason: SEVERE PAIN Last Admin: 01/24/19 08:57 Dose: 10 mg Oxycodone/Acetaminophen (Percocet 5/325 Tab*) 1 tab PO Q4H PRN PRN Reason: PAIN Oxycodone/Acetaminophen (Percocet 5/325 Tab*) 2 tab PO Q4H PRN PRN Reason: PAIN Last Admin: 01/24/19 04:24 Dose: 2 tab Polyethylene Glycol/Electrolytes (Miralax*) 17 gm PO DAILY PRN PRN Reason: Constipation Polyvinyl Alcohol (Polyvinyl Alcohol 1.4% Opth*) 1 drop BOTH EYES Q2H PRN PRN Reason: DRY EYE Last Admin: 01/24/19 07:49 Dose: 1 drop Tramadol HCl (Ultram*) 50 mg PO Q6H PRN PRN Reason: PAIN Last Admin: 01/23/19 06:12 Dose: 50 mg Vital Signs - 8 hr 01/24/19 01/24/19 01/24/19 02:57 02:58 04:20 Temperature 99.2 F Pulse Rate 72 Respiratory 16 16 17 Rate Blood Pressure 128/74 (mmHg) O2 Sat by Pulse 90 Oximetry 01/24/19 01/24/19 01/24/19 04:24 06:24 07:48 Temperature 98.4 F Pulse Rate 81 Respiratory 16 16 18 Rate Blood Pressure 140/95 (mmHg) O2 Sat by Pulse 92 Oximetry 01/24/19 01/24/19 08:00 08:57 Temperature Pulse Rate Respiratory 20 18 Rate Blood Pressure (mmHg) O2 Sat by Pulse 92 Oximetry Oxygen Devices in Use Now: None Appearance: Pleasant man in NAD Eyes: No Scleral Icterus, PERRLA Ears/Nose/Mouth/Throat: NL Teeth, Lips, Gums Neck: NL Appearance and Movements; NL JVP Respiratory: Symmetrical Chest Expansion and Respiratory Effort, Clear to Auscultation Cardiovascular: NL Sounds; No Murmurs; No JVD, RRR Abdominal: NL Sounds; No Tenderness; No Distention, No Hepatosplenomegaly Lymphatic: No Cervical Adenopathy Extremities: No Edema Neurological: Alert and Oriented x 3 Result Diagrams: 01/24/19 05:24 01/23/19 07:50 Assess/Plan/Problems-Billing Assessment: 63 yo male with PMHx HTN and hypothyroidism s/p right TKA with Dr. Prince. Hospital medicine has been consulted for co-management of chronic medical conditions. - Patient Problems (1) History of total left knee replacement (TKR) Current Visit: No Status: Acute Code(s): Z96.652 - PRESENCE OF LEFT ARTIFICIAL KNEE JOINT SNOMED Code(s): 5904780368284 Comment: - Pain mgmt per orthopedics (2) Hypothyroidism Current Visit: Yes Status: Acute Code(s): E03.9 - HYPOTHYROIDISM, UNSPECIFIED SNOMED Code(s): 95062349 Comment: - continue home synthroid (3) Hypertension Current Visit: Yes Status: Acute Code(s): I10 - ESSENTIAL (PRIMARY) HYPERTENSION SNOMED Code(s): 60128409 Comment: -continue home lisinopril with hold parameters for SBP<120 -patient has been overall normotensive (4) DVT prophylaxis Current Visit: Yes Status: Acute Code(s): WPT2039 - SNOMED Code(s): 654008708 Comment: -per orthopedic surg (5) Full code status Current Visit: Yes Status: Acute Code(s): Z78.9 - OTHER SPECIFIED HEALTH STATUS SNOMED Code(s): 962636965 Status and Disposition: Dispo per orthopedic surg, we will follow along with Mr. Spann's care. Thank you for this consult
--- NOTE | 2019-01-24 11:43 | DS ---
Orthopedic Discharge Summary - Discharge Summary Date of Admission:01/22/19 Date of Discharge: 01/24/19 Date of Surgery: 01/22/19 Attending Orthopedic Provider: Dr. Prince Pre-operative Diagnosis: Right knee OA Operative Procedure: Right TKA Condition of Patient: Stable History: ANGELINA ADDISON is a 63 year old M with years of increasingly severe right knee pain due to OA. Patient has failed conservative management and has elected to undergo a right total knee replacement Hospital Course: ANGELINA was admitted to [facility] on 01/22/19. Patient underwent a right TKA without complication followed by a brief recovery in PACU and transfer to the Short Stay Surgical Unit in stable condition. Our hospitalist service, physical therapy and occupational therapy also participated in this patients care. Post-op day 1: patient was alert and in no acute distress. Dressing was clean, dry and intact. Operative extremity dorsiflexion and plantarflexion intact, sensation intact to light touch distally , DP2+. Post-op day two: dressing was changed, incision was clean, dry and intact. Patient was deemed to be medically and orthopedically stable for discharge home. Physical therapy goals were met. Home Medications Medication Instructions Recorded Confirmed Type Montelukast Sodium TAB* [Singulair 10 mg PO QAM 12/22/15 01/22/19 History 5 mg TAB*] Levothyroxine Sodium [Synthroid] 50 mcg PO QAM 04/09/18 01/22/19 History Lisinopril 10 mg PO QAM 04/09/18 01/22/19 History [place] Fruit [[place]] 1 tab PO BID 04/09/18 01/22/19 History Vitamin D3 5,000 mg PO QAM 04/09/18 01/22/19 History Vitamin E Acetate [Vitamin E] 1,200 mg PO QAM 04/09/18 01/22/19 History Apixaban* [Eliquis*] 2.5 mg PO BID tab 01/24/19 Rx Cyclobenzaprine TAB* [Flexeril 10 10 mg PO TID PRN tab 01/24/19 Rx MG TAB*] Docusate CAP* [Colace Cap*] 100 mg PO BID cap 01/24/19 Rx Morphine TAB Extended Rel(*) [Ms 15 mg PO Q12H tab.er 01/24/19 Rx Contin(*)] oxyCODONE/Acetamin 5/325 MG* 1 tab PO Q4H PRN tab 01/24/19 Rx [Percocet 5/325 TAB*] oxyCODONE/Acetamin 5/325 MG* 2 tab PO Q4H PRN tab 01/24/19 Rx [Percocet 5/325 TAB*] Discharge Instructions following Orthopedic Surgery: Activity: * Weight Bearing as tolerated * Continue physical therapy and occupational therapy exercises as shown Wound care: * OK to shower on post-op day 3, no bathing, swimming, or submerging wound. * Use gentle soap, pat dry. Cover with gauze, YADY wrap or tape. * Visiting home nurse to do wound checks. Call Orthopedic office for: * Increased drainage * Redness * Increased pain * Fever Go to ER with shortness of breath or chest pain. Diet: * Regular diet * Increase fluids and fiber to prevent constipation. * Continue to use stool softeners(colace), call office if no bowel motion within 48 hours. Medications See Home Medication List in your packet for medications that you should take after discharge. DVT Prophylaxis Eliquis Dosin.5 mg, 1 tab every 12 hours x 30 days Pain Control: Percocet 5/325 mg 1-2 tabs by mouth every 4-6 hours as needed for pain. Maximum of 10 tabs per day. Please note that Percocet contains Tylenol (acetaminophen). Maximum daily dose of Tylenol is 4000 mg from all sources. Cyclobenzaprine 10 mg take 1 tab every 8 hours as needed muscle spasms/pain MS Contin 15 mg take 1 tab every 12 hours x 7 days for pain Antibiotics are required prior to any dental work. FOLLOW UP: Follow up with Dr. Prince Within 10-14 days, call for appointment Please call our office with any questions or concerns ([phone])
[2019-01-24 12:16] VITALS: BP 138/76
[2019-01-25] MEDS ORDERED: Scopolamine PATCH Remove* 1 NOTE MISC PATCH OFF ONE (11:38)
== END 2019-01-24 15:45 | disposition home or self-care (01) | DRG 302 ==
LOC: AA 08:53 → SSU 15:18
PROVIDERS: ADMIT Orthopaedic Surgery Adult Reconstructive Orthopaedic Surgery; ATTEND Orthopaedic Surgery Adult Reconstructive Orthopaedic Surgery
PROC: 0SRC069 Replacement of Right Knee Joint with Oxidized Zirconium on Polyethylene Synthetic Substitute, Cemented, Open Approach (ICD-10-PCS; principal; 2019-01-22 11:15)
DX: M17.11 Unilateral primary osteoarthritis, right knee (principal); I10 Essential (primary) hypertension; E03.9 Hypothyroidism, unspecified; Z96.652 Presence of left artificial knee joint; M25.461 Effusion, right knee; E78.00 Pure hypercholesterolemia, unspecified; E66.9 Obesity, unspecified; M25.761 Osteophyte, right knee; J32.9 Chronic sinusitis, unspecified; J30.9 Allergic rhinitis, unspecified; I25.10 Atherosclerotic heart disease of native coronary artery without angina pectoris; Z68.38 Body mass index [BMI] 38.0-38.9, adult; Z72.89 Other problems related to lifestyle; Z80.0 Family history of malignant neoplasm of digestive organs; Z87.891 Personal history of nicotine dependence
CPT/HCPCS: 36415; 80048; 85014; 85018; 85049; 88305; 88311; A9270-GY; C1776; G8978-GP-CK; G8979-GP-CI; J0690; J1170; J1885; J2250; J2270; J2405; J2795; J3010